=== PATIENT | male | born 1995 | race Caucasian/White ===

== ENCOUNTER 2017-01-30 22:31 | Emergency (ER) | payer BC, OTHER ==
[~2017-01-30] VITALS: Ht 172.7 cm; Wt 61.2 kg
[2017-01-30] MEDS ORDERED: METH36TA12 (22:49)
[2017-01-30] MEDS ORDERED: RT-ALBUTEROL/IPRATROPIUM 3 ML (DUONEB) VIAL ONE (23:27)
[2017-01-30] MEDS ORDERED: RT-ALBUTEROL/IPRATROPIUM 3 ML (DUONEB) VIAL INH ONE (23:30)
[2017-01-31] MEDS ORDERED: RX-ALBUTEROL INHALER (PROAIR) 8 GM IH STA (00:09)
[2017-01-31] MEDS ORDERED: predniSONE 20 MG TAB PO ONE (00:15)
[2017-01-31] MEDS ORDERED: PRD20T PO (00:15)
--- NOTE | 2017-01-31 00:15 | ED Respiratory ---
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 Allergies and Home Medications Allergies Coded Allergies: No Known Drug Allergies (Unverified , 01/30/17) Home Medications Methylphenidate HCl 36 Mg Tab.er.24, (Reported) Past Uvenelp-Keglje-Cevpxa Hx Patient Social History Alcohol Use: Denies Use Recreational Drug Use: No Smoking Status: Never a Smoker Recent Foreign Travel: No Contact w/Someone Who Travel: No Recent Infectious Disease Expo: No Recent Hopitalizations: No Ebola Symptoms: Denies Symptoms Listed Physical Abuse: No Sexual Abuse: No Surgeries History of Surgeries: No Respiratory History of Respiratory Disorde: No Cardiovascular History of Cardiac Disorders: No Neurological History of Neurological Disord: No Genitourinary History of Genitourinary Disor: No Gastrointestinal History of Gastrointestinal Di: No Musculoskeletal History of Musculoskeletal Dis: No Endocrine History of Endocrine Disorders: No HEENT History of HEENT Disorders: No Cancer History of Cancer: No Psychosocial History of Psychiatric Problem: Yes Behavioral Health Disorders: ADD/ADHD Suicide Risk Score: 0 Integumentary History of Skin or Integumenta: No Blood Transfusions History of Blood Disorders: No Physical Exam Vital Signs Vital Sign - Last 12Hours 01/30/17 01/30/17 22:46 23:34 Temp 97.7 Pulse 70 Resp 18 B/P (MAP) 128/99 Pulse Ox 95 O2 Delivery Room Air Capillary Refill : Progress/Results/Core Measures Suspected Sepsis SIRS Temperature:97.7 Pulse: Respiratory Rate: Blood Pressure / Mean: Results/Orders My Orders Orders - RUSSELL ATKINSON MD Albuterol/Ipra Inhalation Soln (Duoneb I (01/30/17 23:30) Svn Sm Volume Nebulizer Rt-Rfs (01/30/17 23:28) Albuterol/Ipra Inhalation Soln (Duoneb I (01/30/17 23:27) Chest Pa/Lat (2 View) (01/31/17 00:01) Prednisone Tablet (Deltasone Tablet) (01/31/17 00:15) Rx-Albuterol Inhaler (Rx-Proair) (01/31/17 00:09) Medications Given in ED Current Medications Medications Dose Ordered Sig/Christos Route Start Time Stop Time Status Last Admin Dose Admin Albuterol/ Ipratropium 3 ml ONCE ONCE INH 01/30/17 23:30 01/30/17 23:31 DC 01/30/17 23:34 3 ML Albuterol/ Ipratropium 3 ml STK-MED ONCE .ROUTE 01/30/17 23:27 01/30/17 23:30 DC 01/30/17 23:40 3 ML Vital Signs/I&O Vital Sign - Last 12Hours 01/30/17 01/30/17 22:46 23:34 Temp 97.7 Pulse 70 Resp 18 B/P (MAP) 128/99 Pulse Ox 95 O2 Delivery Room Air Capillary Refill : Departure Impression Impression: Primary Impression: Acute bronchitis Qualified Codes: J20.9 - Acute bronchitis, unspecified Additional Impression: Bronchospasm Disposition: HOME, SELF-CARE Condition: Improved Departure-Patient Inst. Decision time for Depature: 00:13 Referrals: NO,LOCAL PHYSICIAN (PCP/Family) Primary Care Physician Patient Instructions: Acute Bronchitis, Adult (DC) Add. Discharge Instructions: You may use your inhaler up to 4 puffs and a four-hour period of time as needed for wheezing and shortness of breath. Complete the steroids as prescribed. Return to care if symptoms worsen. If symptoms are persistent, follow-up with your primary care provider to discuss maintenance medication. You may use ibuprofen and/or Tylenol for chest discomfort. All discharge instructions reviewed with patient and/or family. Voiced understanding. Scripts Prednisone (Prednisone) 20 Mg Tab 20 MG PO DAILY, #4 TAB Prov: RUSSELL ATKINSON MD 01/31/17 RUSSELL ATKINSON MD Jan 31, 2017 00:15
--- NOTE | 2017-01-31 07:55 | Diagnostic Imaging Report ---
INDICATION: Shortness of air, cough, congestion. TECHNIQUE: Two view chest 12:18 AM CORRELATION STUDY: None FINDINGS: The heart size, mediastinal configuration and pulmonary vasculature are within normal limits. The lungs are clear with no consolidating infiltrate. There is no significant pleural effusion or pneumothorax. Visualized osseous structures are unremarkable. IMPRESSION: 1. No radiographic evidence for acute abnormality of the chest. Dictated by: Dictated on workstation # [id number]
== END 2017-01-31 00:24 | disposition home or self-care (01) ==
LOC: ER 22:34
DX: J20.9 Acute bronchitis, unspecified (principal); F90.9 Attention-deficit hyperactivity disorder, unspecified type
CPT/HCPCS: 71020; 94640; 99283